=== PATIENT | male | born 1970 | race Hispanic/Latino ===

== ENCOUNTER 2019-10-12 14:41 | Observation (INO) | payer SELFPAY ==
[~2019-10-12] VITALS: Ht 165.1 cm; Wt 71.0 kg
[~2019-10-12 14:41] MED LIST: LANTUS100 MG/ML SC; METFORMIN500 MG PO; NO
[2019-10-12 18:20] LABS: HEMATOCRIT 38.1 % (39.0-50.0); IMMATURE GRANULOCYTES 0.3 % (0.0-5.0); MEAN CELL VOLUME 83.2 fL CALC (80.0-100.0); MEAN CORPUSCULAR HGB 27.9 pG CALC (26.0-32.0); MEAN CORPUSCULAR HGB CONC 33.6 g/L CALC (32.0-36.0); NEUT# 5.92 thou/uL (1.82-7.42); RED BLOOD COUNT 4.58 mill/uL (4.70-6.10); RED CELL DISTRI WIDTH 12.7 % (11.5-15.5)
[2019-10-12 18:21] LABS: URINE BILIRUBIN - DIPSTICK NEGATIVE (NEGATIVE); URINE BLOOD DIPSTICK NEGATIVE (NEGATIVE); URINE COLOR YELLOW; URINE GLUCOSE - DIPSTICK >=1000 mg/dL (NEGATIVE); URINE KETONE NEGATIVE (NEGATIVE); URINE LEUK ESTERASE NEGATIVE (NEGATIVE); URINE NITRITE - DIPSTICK NEGATIVE (Negative); URINE PH 5.5 (4.5-8.0); URINE PROTEIN - DIPSTICK NEGATIVE (NEG-TRACE); URINE SPECIFIC GRAVITY <=1.005; URINE UROBILINOGEN - DIPSTICK 0.2 E.U./dL (0.2)
[2019-10-12 18:22] LABS: HEMOGLOBIN 12.8 g/dl (14.0-18.0)
[2019-10-12 18:40] LABS: ALBUMIN 3.6 g/dL (3.2-5.0); ALKALINE PHOSPHATASE 98 u/l (38-126); ANION GAP 16 (6-22 (CALC)); BUN 14 mg/dL (9-20); BUN/CREATININE RATIO 17 (12-20 (CALC)); CARBON DIOXIDE 20 mmol/l (22-30); CHLORIDE 96 mmol/l (95-108); CREATININE 0.8 mg/dL (0.7-1.3); GFR > 60 ML/MIN (>=60 (CALC)); GFR FOR AFR.AMER. > 60 ML/MIN (>=60 (CALC)); POTASSIUM 4.1 mmol/l (3.5-5.1); SGOT/AST 24 u/l (17-59); SODIUM 129 mmol/l (137-146); TOTAL PROTEIN 6.5 g/dL (6.3-8.2)
[2019-10-12 18:57] LABS: BILIRUBIN, TOTAL 0.2 mg/dL (0.0-1.4)
[2019-10-12 23:42] VITALS: BP 118/78
[2019-10-13 03:59] VITALS: BP 111/65
[2019-10-13 08:45] VITALS: BP 112/64
[2019-10-13 14:03] LABS: HEMOGLOBIN 11.3 g/dl (14.0-18.0); MEAN CELL VOLUME 83.1 fL CALC (80.0-100.0); MEAN CORPUSCULAR HGB 28.5 pG CALC (26.0-32.0); MEAN CORPUSCULAR HGB CONC 34.2 g/L CALC (32.0-36.0); RED BLOOD COUNT 3.97 mill/uL (4.70-6.10); RED CELL DISTRI WIDTH 12.7 % (11.5-15.5)
[2019-10-13 14:31] LABS: ANION GAP 10 (6-22 (CALC)); BUN 11 mg/dL (9-20); BUN/CREATININE RATIO 18 (12-20 (CALC)); CARBON DIOXIDE 20 mmol/l (22-30); CHLORIDE 104 mmol/l (95-108); CREATININE 0.6 mg/dL (0.7-1.3); GFR > 60 ML/MIN (>=60 (CALC)); GFR FOR AFR.AMER. > 60 ML/MIN (>=60 (CALC)); MAGNESIUM 1.6 mg/dL (1.6-2.3); SODIUM 131 mmol/l (137-146)
[2019-10-13 15:18] VITALS: BP 109/50
[2019-10-13 19:18] VITALS: BP 119/71
[2019-10-14 04:03] VITALS: BP 96/52
[2019-10-14 05:35] LABS: ANION GAP 9 (6-22 (CALC)); BUN 9 mg/dL (9-20); BUN/CREATININE RATIO 15 (12-20 (CALC)); CARBON DIOXIDE 23 mmol/l (22-30); CHLORIDE 109 mmol/l (95-108); CREATININE 0.6 mg/dL (0.7-1.3); GFR > 60 ML/MIN (>=60 (CALC)); GFR FOR AFR.AMER. > 60 ML/MIN (>=60 (CALC)); MAGNESIUM 1.9 mg/dL (1.6-2.3); POTASSIUM 3.3 mmol/l (3.5-5.1); SODIUM 137 mmol/l (137-146)
[2019-10-14 08:10] VITALS: BP 121/62
[2019-10-14] MEDS ORDERED: GABAPENTIN300 M2 PO (12:08)
[2019-10-14] MEDS ORDERED: METFORMIN1000 MG PO (12:08)
[2019-10-14] MEDS ORDERED: NOVOLIN 70/30 SC (12:08)
== END 2019-10-14 15:00 | disposition home or self-care (01) | DRG 638 ==
LOC: ED 14:41 → ED-I 20:00 → ED 21:08 → ICU 21:09 → MS2 22:35
PROVIDERS: Nurse Practitioner Family; ADMIT Internal Medicine; ATTEND Internal Medicine
PROC: 3E0234Z Introduction of Serum, Toxoid and Vaccine into Muscle, Percutaneous Approach (ICD-10-PCS; principal; 2019-10-14)
DX: E11.65 Type 2 diabetes mellitus with hyperglycemia (principal); E87.1 Hypo-osmolality and hyponatremia; E11.42 Type 2 diabetes mellitus with diabetic polyneuropathy; I10 Essential (primary) hypertension; T38.3X6A Underdosing of insulin and oral hypoglycemic [antidiabetic] drugs, initial encounter; Z91.120 Patient's intentional underdosing of medication regimen due to financial hardship; Z79.4 Long term (current) use of insulin; Z23 Encounter for immunization
CPT/HCPCS: G0378; J1650

== ENCOUNTER 2019-11-25 | Emergency (ER) | payer SELFPAY ==
[~2019-11-25] MED LIST changes: +GABAPENTIN300 M2 PO; +METFORMIN1000 MG PO; +NOVOLIN 70/30 SC
[2019-11-25 14:17] LABS: IMMATURE GRANULOCYTES 0.2 % (0.0-5.0); MEAN CELL VOLUME 84.3 fL CALC (80.0-100.0); MEAN CORPUSCULAR HGB 27.7 pG CALC (26.0-32.0); MEAN CORPUSCULAR HGB CONC 32.8 g/L CALC (32.0-36.0); NEUT# 4.66 thou/uL (1.82-7.42); RED BLOOD COUNT 4.7 mill/uL (4.70-6.10); RED CELL DISTRI WIDTH 13.1 % (11.5-15.5)
[2019-11-25 14:21] LABS: HEMATOCRIT 39.6 % (39.0-50.0)
[2019-11-25 14:25] LABS: URINE BILIRUBIN - DIPSTICK NEGATIVE (NEGATIVE); URINE BLOOD DIPSTICK NEGATIVE (NEGATIVE); URINE COLOR YELLOW; URINE GLUCOSE - DIPSTICK >=1000 mg/dL (NEGATIVE); URINE KETONE NEGATIVE (NEGATIVE); URINE LEUK ESTERASE NEGATIVE (NEGATIVE); URINE NITRITE - DIPSTICK NEGATIVE (Negative); URINE PROTEIN - DIPSTICK NEGATIVE (NEG-TRACE); URINE SPECIFIC GRAVITY >=1.030; URINE UROBILINOGEN - DIPSTICK 0.2 E.U./dL (0.2)
[2019-11-25 14:29] LABS: BARBITURATES NEGATIVE (NEGATIVE); COCAINE NEGATIVE (NEGATIVE); METHADONE NEGATIVE (NEGATIVE); OXCYCODONE NEGATIVE (NEGATIVE); TETRAHYDROCANNABIONOL NEGATIVE (NEGATIVE); TRICYLIC ANTIDEPRESSANTS NEGATIVE (NEGATIVE)
[2019-11-25 14:33] LABS: ALBUMIN 4.1 g/dL (3.2-5.0); ALKALINE PHOSPHATASE 72 u/l (38-126); BUN 15 mg/dL (9-20); BUN/CREATININE RATIO 24 (12-20 (CALC)); CARBON DIOXIDE 24 mmol/l (22-30); CHLORIDE 102 mmol/l (95-108); CREATININE 0.6 mg/dL (0.7-1.3); GFR > 60 ML/MIN (>=60 (CALC)); GFR FOR AFR.AMER. > 60 ML/MIN (>=60 (CALC)); SGOT/AST 16 u/l (17-59); SODIUM 136 mmol/l (137-146); TOTAL PROTEIN 7.1 g/dL (6.3-8.2)
[2019-11-25 14:34] LABS: ANION GAP 15 (6-22 (CALC)); BILIRUBIN, TOTAL 0.4 mg/dL (0.0-1.4); POTASSIUM 4.5 mmol/l (3.5-5.1)
== END 2019-11-25 15:20 | disposition home or self-care (01) | DRG 93 ==
DX: R20.2 Paresthesia of skin (principal); E11.65 Type 2 diabetes mellitus with hyperglycemia; E11.40 Type 2 diabetes mellitus with diabetic neuropathy, unspecified; I10 Essential (primary) hypertension; Z79.84 Long term (current) use of oral hypoglycemic drugs

== ENCOUNTER 2020-04-19 12:24 | Emergency (ER) | payer SELFPAY ==
[~2020-04-19] VITALS: Ht 165.1 cm; Wt 72.0 kg
[2020-04-19] MEDS ORDERED: PENICILLN VK500 MG PO (12:43)
[2020-04-19 12:50] VITALS: BP 116/60
== END 2020-04-19 13:00 | disposition home or self-care (01) | DRG 159 ==
LOC: ED 12:24
DX: K04.7 Periapical abscess without sinus (principal); K02.9 Dental caries, unspecified; I10 Essential (primary) hypertension; E11.40 Type 2 diabetes mellitus with diabetic neuropathy, unspecified; Z79.84 Long term (current) use of oral hypoglycemic drugs

== ENCOUNTER 2020-07-27 18:46 | Emergency (ER) | payer SELFPAY ==
[~2020-07-27] VITALS: Ht 165.1 cm; Wt 69.0 kg
[~2020-07-27 18:46] MED LIST changes: +PENICILLN VK500 MG PO
[2020-07-27 19:52] LABS: HEMATOCRIT 33.6 % (39.0-50.0); HEMOGLOBIN 11.2 g/dl (14.0-18.0); IMMATURE GRANULOCYTES 0.2 % (0.0-5.0); MEAN CELL VOLUME 86.6 fL CALC (80.0-100.0); MEAN CORPUSCULAR HGB 28.9 pG CALC (26.0-32.0); MEAN CORPUSCULAR HGB CONC 33.3 g/dL CAL (32.0-36.0); NEUT# 3.03 thou/uL (1.82-7.42); RED BLOOD COUNT 3.88 mill/uL (4.70-6.10); RED CELL DISTRI WIDTH 14.3 % (11.5-15.5)
[2020-07-27 20:10] LABS: ALBUMIN 3.5 g/dL (3.2-5.0); ALKALINE PHOSPHATASE 80 u/l (38-126); ANION GAP 11 (6-22 (CALC)); BUN 15 mg/dL (9-20); BUN/CREATININE RATIO 16 (12-20 (CALC)); CARBON DIOXIDE 24 mmol/l (22-30); CHLORIDE 103 mmol/l (95-108); CPK 82 u/l (52-200); GFR > 60 ML/MIN (>=60 (CALC)); GFR FOR AFR.AMER. > 60 ML/MIN (>=60 (CALC)); MAGNESIUM 1.7 mg/dL (1.6-2.3); POTASSIUM 3.8 mmol/l (3.5-5.1); SGOT/AST 14 u/l (17-59); SODIUM 134 mmol/l (137-146)
[2020-07-27 20:11] LABS: BILIRUBIN, TOTAL 0.2 mg/dL (0.0-1.4)
[2020-07-27 20:21] LABS: MYOGLOBIN 33 ng/mL (0 - 121)
[2020-07-27 21:21] LABS: URINE BILIRUBIN - DIPSTICK NEGATIVE (NEGATIVE); URINE BLOOD DIPSTICK NEGATIVE (NEGATIVE); URINE COLOR YELLOW; URINE GLUCOSE - DIPSTICK >=1000 mg/dL (NEGATIVE); URINE KETONE NEGATIVE (NEGATIVE); URINE LEUK ESTERASE NEGATIVE (NEGATIVE); URINE NITRITE - DIPSTICK NEGATIVE (Negative); URINE PH 5.5 (4.5-8.0); URINE PROTEIN - DIPSTICK NEGATIVE (NEG-TRACE); URINE SPECIFIC GRAVITY 1.025; URINE UROBILINOGEN - DIPSTICK 0.2 E.U./dL (0.2)
[2020-07-27] MEDS ORDERED: NOVOLIN N100 UNIT/1 SC (21:35)
[2020-07-27 22:42] VITALS: BP 114/74
== END 2020-07-27 22:42 | disposition home or self-care (01) | DRG 639 ==
LOC: ED 18:46
PROVIDERS: Family Medicine
DX: E11.65 Type 2 diabetes mellitus with hyperglycemia (principal); I10 Essential (primary) hypertension; E11.40 Type 2 diabetes mellitus with diabetic neuropathy, unspecified; Z79.84 Long term (current) use of oral hypoglycemic drugs

== ENCOUNTER 2021-06-24 11:32 | Emergency (ER) | payer SELFPAY ==
[~2021-06-24] VITALS: Ht 165.1 cm; Wt 70.0 kg
[~2021-06-24 11:32] MED LIST changes: +NOVOLIN N100 UNIT/1 SC
[2021-06-24 12:19] LABS: HEMOGLOBIN 12.5 g/dl (14.0-18.0); IMMATURE GRANULOCYTES 0.2 % (0.0-5.0); MEAN CELL VOLUME 86.4 fL CALC (80.0-100.0); MEAN CORPUSCULAR HGB 28.4 pG CALC (26.0-32.0); MEAN CORPUSCULAR HGB CONC 32.9 g/dL CAL (32.0-36.0); NEUT# 14.25 thou/uL (1.82-7.42); RED BLOOD COUNT 4.4 mill/uL (4.70-6.10); RED CELL DISTRI WIDTH 13.9 % (11.5-15.5)
[2021-06-24 12:21] LABS: GFR > 60 ML/MIN (>=60 (CALC)); GFR FOR AFR.AMER. > 60 ML/MIN (>=60 (CALC))
[2021-06-24 12:35] LABS: ALBUMIN 4.2 g/dL (3.2-5.0); ALKALINE PHOSPHATASE 90 u/l (38-126); BUN 16 mg/dL (9-20); BUN/CREATININE RATIO 24 (12-20 (CALC)); CHLORIDE 97 mmol/l (95-108); CREATININE 0.7 mg/dL (0.7-1.3); GFR > 60 ML/MIN (>=60 (CALC)); GFR FOR AFR.AMER. > 60 ML/MIN (>=60 (CALC)); LIPASE 56 u/l (23-300); POTASSIUM 3.9 mmol/l (3.5-5.1); SGOT/AST 24 u/l (17-59); SODIUM 134 mmol/l (137-146)
[2021-06-24 12:47] LABS: ANION GAP 23 (6-22 (CALC)); BILIRUBIN, TOTAL 0.8 mg/dL (0.0-1.4); CARBON DIOXIDE 18 mmol/l (22-30); TOTAL PROTEIN 7.3 g/dL (6.3-8.2)
[2021-06-24] MEDS ORDERED: METRONIDAZOL500 MG PO (14:55)
[2021-06-24] MEDS ORDERED: ONDANSETRON4 MG PO (14:55)
[2021-06-24] MEDS ORDERED: CIPROFLOXACN500 MG PO (14:55)
[2021-06-24 15:51] VITALS: BP 147/70
== END 2021-06-24 15:58 | disposition home or self-care (01) | DRG 392 ==
LOC: ED 11:32
PROVIDERS: Family Medicine
DX: K20.90 Esophagitis, unspecified without bleeding (principal); I10 Essential (primary) hypertension; E11.40 Type 2 diabetes mellitus with diabetic neuropathy, unspecified; Z79.4 Long term (current) use of insulin; Z20.822 Contact with and (suspected) exposure to COVID-19
CPT/HCPCS: Q9967

== ENCOUNTER 2021-10-12 15:01 | Emergency (ER) | payer OTHER ==
[~2021-10-12] VITALS: Ht 165.1 cm; Wt 75.0 kg
[~2021-10-12 15:01] MED LIST changes: +CIPROFLOXACN500 MG PO; +METRONIDAZOL500 MG PO; +ONDANSETRON4 MG PO
[2021-10-12] MEDS ORDERED: LEVEMIR100 UNIT SC ×2 (17:11)
[2021-10-12] MEDS ORDERED: METFORMIN HCL1000 MG PO (17:12)
[2021-10-12] MEDS ORDERED: OMEPRAZOLE DR20 MG PO (17:13)
[2021-10-12 17:32] LABS: HEMATOCRIT 43.5 % (39.0-50.0); HEMOGLOBIN 14.4 g/dl (14.0-18.0); IMMATURE GRANULOCYTES 0.2 % (0.0-5.0); MEAN CELL VOLUME 86.8 fL CALC (80.0-100.0); MEAN CORPUSCULAR HGB 28.7 pG CALC (26.0-32.0); MEAN CORPUSCULAR HGB CONC 33.1 g/dL CAL (32.0-36.0); NEUT# 5.6 thou/uL (1.82-7.42); RED BLOOD COUNT 5.01 mill/uL (4.70-6.10); RED CELL DISTRI WIDTH 13.2 % (11.5-15.5)
[2021-10-12 17:48] LABS: ALKALINE PHOSPHATASE 108 u/l (38-126); ANION GAP 19 (6-22 (CALC)); BILIRUBIN, TOTAL 0.5 mg/dL (0.0-1.4); BUN 23 mg/dL (9-20); BUN/CREATININE RATIO 22 (12-20 (CALC)); CARBON DIOXIDE 20 mmol/l (22-30); CHLORIDE 97 mmol/l (95-108); CREATININE 1.1 mg/dL (0.7-1.3); GFR > 60 ML/MIN (>=60 (CALC)); GFR FOR AFR.AMER. > 60 ML/MIN (>=60 (CALC)); SGOT/AST 13 u/l (17-59); SODIUM 131 mmol/l (137-146)
[2021-10-12 18:00] LABS: POTASSIUM 5.1 mmol/l (3.5-5.1)
[2021-10-12 18:47] VITALS: BP 140/75
== END 2021-10-12 19:18 | disposition home or self-care (01) | DRG 639 ==
LOC: ED 15:01
PROVIDERS: Family Medicine
DX: E11.65 Type 2 diabetes mellitus with hyperglycemia (principal); I10 Essential (primary) hypertension; E11.40 Type 2 diabetes mellitus with diabetic neuropathy, unspecified; Z79.4 Long term (current) use of insulin; Z79.84 Long term (current) use of oral hypoglycemic drugs; Z20.822 Contact with and (suspected) exposure to COVID-19

== ENCOUNTER 2021-11-30 14:16 | Emergency (ER) | payer OTHER ==
[2021-11-30] VITALS (8 sets, daily range): BP systolic 119–148; BP diastolic 68–80
[~2021-11-30] VITALS: Ht 165.1 cm; Wt 77.0 kg
[~2021-11-30 14:16] MED LIST changes: +LEVEMIR100 UNIT SC; +METFORMIN HCL1000 MG PO; +OMEPRAZOLE DR20 MG PO
[2021-11-30 16:06] LABS: MYOGLOBIN 26 ng/mL (0 - 121)
[2021-11-30 17:06] LABS: HEMATOCRIT 40.9 % (39.0-50.0); HEMOGLOBIN 13.2 g/dl (14.0-18.0); IMMATURE GRANULOCYTES 0.4 % (0.0-5.0); MEAN CELL VOLUME 88.9 fL CALC (80.0-100.0); MEAN CORPUSCULAR HGB 28.7 pG CALC (26.0-32.0); MEAN CORPUSCULAR HGB CONC 32.3 g/dL CAL (32.0-36.0); NEUT# 4.12 thou/uL (1.82-7.42); RED BLOOD COUNT 4.6 mill/uL (4.70-6.10); RED CELL DISTRI WIDTH 12.7 % (11.5-15.5)
[2021-11-30 17:23] LABS: ANION GAP 16 (6-22 (CALC)); BUN 10 mg/dL (9-20); BUN/CREATININE RATIO 15 (12-20 (CALC)); CARBON DIOXIDE 20 mmol/l (22-30); CHLORIDE 101 mmol/l (95-108); CREATININE 0.7 mg/dL (0.7-1.3); GFR > 60 ML/MIN (>=60 (CALC)); GFR FOR AFR.AMER. > 60 ML/MIN (>=60 (CALC)); SODIUM 133 mmol/l (137-146)
[2021-11-30 17:25] LABS: POTASSIUM 3.8 mmol/l (3.5-5.1)
== END 2021-11-30 18:23 | disposition home or self-care (01) | DRG 639 ==
LOC: ED 14:16
PROVIDERS: Emergency Medicine
DX: E11.65 Type 2 diabetes mellitus with hyperglycemia (principal); E11.40 Type 2 diabetes mellitus with diabetic neuropathy, unspecified; I10 Essential (primary) hypertension; Z79.4 Long term (current) use of insulin; Z79.84 Long term (current) use of oral hypoglycemic drugs

== ENCOUNTER 2021-12-09 08:27 | Inpatient (IN) | payer OTHER ==
[2021-12-09] VITALS (10 sets, daily range): BP systolic 97–117; BP diastolic 58–72
[~2021-12-09] VITALS: Ht 165.1 cm; Wt 77.0 kg
--- NOTE | 2021-12-09 08:30 | NUR ---
TO ROOM VIA WHEELCHAIR
[2021-12-09 09:02] LABS: IMMATURE GRANULOCYTES 0.8 % (0.0-5.0); MEAN CELL VOLUME 90.8 fL CALC (80.0-100.0); MEAN CORPUSCULAR HGB 28.4 pG CALC (26.0-32.0); MEAN CORPUSCULAR HGB CONC 31.2 g/dL CAL (32.0-36.0); NEUT# 5.18 thou/uL (1.82-7.42); RED BLOOD COUNT 5.43 mill/uL (4.70-6.10); RED CELL DISTRI WIDTH 13.1 % (11.5-15.5)
[2021-12-09 09:16] LABS: ALBUMIN 4.7 g/dL (3.2-5.0); ALKALINE PHOSPHATASE 101 u/l (38-126); BILIRUBIN, TOTAL 0.5 mg/dL (0.0-1.4); BUN 21 mg/dL (9-20); CHLORIDE 103 mmol/l (95-108); HEMATOCRIT 49.3 % (39.0-50.0); HEMOGLOBIN 15.4 g/dl (14.0-18.0); SGOT/AST 17 u/l (17-59); TOTAL PROTEIN 8.2 g/dL (6.3-8.2)
[2021-12-09 09:17] LABS: ANION GAP 38 (6-22 (CALC)); BUN/CREATININE RATIO 12 (12-20 (CALC)); CREATININE 1.8 mg/dL (0.7-1.3); GFR 40 ML/MIN (>=60 (CALC)); GFR FOR AFR.AMER. 48 ML/MIN (>=60 (CALC)); POTASSIUM 5.5 mmol/l (3.5-5.1); SODIUM 140 mmol/l (137-146)
[2021-12-09 09:18] LABS: CARBON DIOXIDE < 5 mmol/l (22-30)
[2021-12-09 09:24] LABS: MYOGLOBIN 25 ng/mL (0 - 121)
--- NOTE | 2021-12-09 11:00 | NUR ---
Admission Note Report Given to: VEENA Transported by: Wheelchair X Stretcher Transported with: X Nurse Transporter X Patent IV X O2 X Soil Engineer Location: X ICU MS2
[2021-12-09 11:09] LABS: BUN 20 mg/dL (9-20); BUN/CREATININE RATIO 14 (12-20 (CALC)); CHLORIDE 114 mmol/l (95-108); CREATININE 1.4 mg/dL (0.7-1.3); GFR 53 ML/MIN (>=60 (CALC)); GFR FOR AFR.AMER. > 60 ML/MIN (>=60 (CALC)); SODIUM 143 mmol/l (137-146)
[2021-12-09 11:10] LABS: URINE BILIRUBIN - DIPSTICK NEGATIVE (NEGATIVE); URINE BLOOD DIPSTICK SMALL (NEGATIVE); URINE COLOR YELLOW; URINE GLUCOSE - DIPSTICK 500 mg/dL (NEGATIVE); URINE KETONE >=80 mg/dL (NEGATIVE); URINE LEUK ESTERASE NEGATIVE (NEGATIVE); URINE PH 5.5 (4.5-8.0); URINE PROTEIN - DIPSTICK 30 mg/dL (NEG-TRACE); URINE SPECIFIC GRAVITY >=1.030; URINE UROBILINOGEN - DIPSTICK 0.2 E.U./dL (0.2)
--- NOTE | 2021-12-09 11:10 | NUR ---
340 ACCUCHECK TITRATED IV TO 4UNITS INSULIN
[2021-12-09] MEDS ORDERED: ROSUVASTATIN CA20 MG PO (11:15)
[2021-12-09 11:16] LABS: CARBON DIOXIDE < 5 mmol/l (22-30)
[2021-12-09] MEDS ORDERED: LISINOPRIL2.5 MG PO (11:16)
[2021-12-09 11:26] LABS: URINE NITRITE - DIPSTICK NEGATIVE (Negative)
[2021-12-09 11:28] LABS: URINE MUCUS MODERATE hpf (NONE-FEW)
--- NOTE | 2021-12-09 12:30 | NUR ---
PT ARRIVES FROM ER VIA STRETCHER ACCOMPANIED BY DAVID BARRIENTOS. PT IS ALERT AND ORIENTED X 3. LUNGS CLEAR, RA. BM YESTERDAY, NO NAUSEA OR VOMITING. INSULIN DRIP TITRATED APPROPRIATELY, NOW AT 4 [facility].
[2021-12-09 14:06] LABS: BUN 19 mg/dL (9-20); BUN/CREATININE RATIO 16 (12-20 (CALC)); CHLORIDE 111 mmol/l (95-108); CREATININE 1.2 mg/dL (0.7-1.3); GFR > 60 ML/MIN (>=60 (CALC)); GFR FOR AFR.AMER. > 60 ML/MIN (>=60 (CALC)); SODIUM 140 mmol/l (137-146)
[2021-12-09 14:16] LABS: ANION GAP 29 (6-22 (CALC)); CARBON DIOXIDE < 5 mmol/l (22-30); POTASSIUM 5.3 mmol/l (3.5-5.1)
--- NOTE | 2021-12-09 15:29 | NUR ---
BS 232, SO IVF SWITCHED TO D5.45 AT 150. PT RESTS IN THE BED IN NO DISTRESS.
[2021-12-09 18:38] LABS: ANION GAP 17 (6-22 (CALC)); BUN 16 mg/dL (9-20); BUN/CREATININE RATIO 19 (12-20 (CALC)); CHLORIDE 111 mmol/l (95-108); CREATININE 0.9 mg/dL (0.7-1.3); GFR > 60 ML/MIN (>=60 (CALC)); GFR FOR AFR.AMER. > 60 ML/MIN (>=60 (CALC)); POTASSIUM 4.7 mmol/l (3.5-5.1); SODIUM 134 mmol/l (137-146)
[2021-12-09 18:53] LABS: CARBON DIOXIDE 11 mmol/l (22-30)
--- NOTE | 2021-12-09 19:00 | NUR ---
REPORT RECIEVED FROM OUT-GOING SHIFT VEENA BARRIENTOS. PATIENT ALERT AND ORIENTED X 3 INSULIN DRIP AT 3 UNITS/HR.
--- NOTE | 2021-12-09 20:15 | NUR ---
DR MÁRQUEZ UPDATED ON CONDITION ACCUCHECK 175 MG/DL INSULLIN DRIP TITRATED TO 2 UNIT/HR. NO OTHER CHANGES NOTED CONDITION STABLE.
--- NOTE | 2021-12-09 21:10 | NUR ---
ACCUCHECK 194 MG/DL NO CHANGES IN INSULIN DRIP. NURISHMENT PROVIDED CLEAR LIQUID DIABETIC DIET TOLERATED WELL
[2021-12-09 21:14] LABS: ANION GAP 15 (6-22 (CALC)); BUN 14 mg/dL (9-20); BUN/CREATININE RATIO 18 (12-20 (CALC)); CARBON DIOXIDE 12 mmol/l (22-30); CHLORIDE 111 mmol/l (95-108); CREATININE 0.8 mg/dL (0.7-1.3); GFR > 60 ML/MIN (>=60 (CALC)); GFR FOR AFR.AMER. > 60 ML/MIN (>=60 (CALC)); POTASSIUM 4.5 mmol/l (3.5-5.1); SODIUM 133 mmol/l (137-146)
--- NOTE | 2021-12-09 22:00 | NUR ---
WATCHING TV NO ACUTE DISTRESS NOTED ACCUCHECK 214 MG/DL INSUIN DRIP AT 3 UNITS/HR
--- NOTE | 2021-12-09 23:00 | NUR ---
PATIENT RESTING QUIETLY WITH EYES CLOSE NO DISTRESS NOTED.
[2021-12-10] VITALS (18 sets, daily range): BP systolic 79–135; BP diastolic 46–79
--- NOTE | 2021-12-10 00:06 | NUR ---
RESTING QUIETLY WITH EYES CLOSED ACCUCHECK 186 MG/DL SKIN WARM AND DRY. CONDITION STABLE.
--- NOTE | 2021-12-10 02:00 | NUR ---
RESTING QUIETLY WITH EYES CLOSED RESULTS OBTAIN NON-CRITICAL TRENDING IMPROVEMENTS NOTED GLUCOSE 193 MG/DL WILL CONTIUE TO MONITOR
[2021-12-10 02:20] LABS: ANION GAP 10 (6-22 (CALC)); BUN 11 mg/dL (9-20); BUN/CREATININE RATIO 16 (12-20 (CALC)); CHLORIDE 110 mmol/l (95-108); CREATININE 0.7 mg/dL (0.7-1.3); GFR > 60 ML/MIN (>=60 (CALC)); GFR FOR AFR.AMER. > 60 ML/MIN (>=60 (CALC)); POTASSIUM 3.7 mmol/l (3.5-5.1); SODIUM 132 mmol/l (137-146)
[2021-12-10 02:23] LABS: CARBON DIOXIDE 16 mmol/l (22-30)
[2021-12-10 06:20] LABS: MEAN CORPUSCULAR HGB 28.6 pG CALC (26.0-32.0); RED BLOOD COUNT 3.99 mill/uL (4.70-6.10); RED CELL DISTRI WIDTH 13.2 % (11.5-15.5)
[2021-12-10 06:21] LABS: ANION GAP 11 (6-22 (CALC)); BUN 9 mg/dL (9-20); BUN/CREATININE RATIO 13 (12-20 (CALC)); CARBON DIOXIDE 15 mmol/l (22-30); CHLORIDE 110 mmol/l (95-108); CREATININE 0.7 mg/dL (0.7-1.3); GFR > 60 ML/MIN (>=60 (CALC)); GFR FOR AFR.AMER. > 60 ML/MIN (>=60 (CALC)); POTASSIUM 3.6 mmol/l (3.5-5.1); SODIUM 133 mmol/l (137-146)
[2021-12-10 06:22] LABS: CHOLESTEROL HDL RATIO 4.1 (<4.4 (CALC)); HEMATOCRIT 33.5 % (39.0-50.0); HEMOGLOBIN 11.4 g/dl (14.0-18.0); MAGNESIUM 1.5 mg/dL (1.6-2.3)
--- NOTE | 2021-12-10 06:25 | NUR ---
RESTING QUIETLY IN BED NO COMPLAINTS ACUCHECK 192 MG/DL INSULIN DRIP REMAIN AT 2 UNITS/HR
--- NOTE | 2021-12-10 07:30 | NUR ---
pt awake in bed; no apparent distress noted; pt offers no complaints; assessment completed at this time; pt alert and oriented; denies pain; no n/v noted; resp even and unlabored; lungs clear; skin color wnl; ra; hr reg; strong pulses; no edema noted; sr on monitor; abd soft with bs present; no bm noted per automobile and property underwriter; pt admits to voiding without complication; no urine to inspect at this time; #20 patent to rac with ivf/ insulin gtt infusing as per protocol; #20 flushed and patent to lac; mag infusion started; plan of care/ meds explained; call light withiin reach; will continue to monitor
--- NOTE | 2021-12-10 08:00 | NUR ---
awake in bed eating breakfast; sr on monitor; iv intact; insulin gtt continued; call light within reach; will continue to monitor
--- NOTE | 2021-12-10 10:15 | NUR ---
pt resting in bed with eyes closed; easily aroused; offers no complaints; iv intact and patent; insulin gtt dc'd as per MD orders; sr on monitor; call light within reach; will continue to monitor
--- NOTE | 2021-12-10 12:00 | NUR ---
awake in bed; offers no complaints; no apparent distress noted; iv intact and patent; sr on monitor; call light within reach; will continue to monitor
--- NOTE | 2021-12-10 12:00 | NUR ---
awake in bed; no apparent distress noted; sr on monitor; call light within reach; will continue to monitor
--- NOTE | 2021-12-10 14:00 | NUR ---
awake in bed; offers no complaints; no apparent distress noted; iv intact and patent; sr on monitor; call light within reach; will continue to monitor
--- NOTE | 2021-12-10 16:00 | NUR ---
pt awake in bed; offers no complaints; iv intact and patent; no redness or edema noted at site; sr on monitor; call light within reach; will continue to monitor
--- NOTE | 2021-12-10 17:30 | NUR ---
glucose 171; labs obtained x1 attempt; will continue to monitor
[2021-12-10 18:04] LABS: ANION GAP 10 (6-22 (CALC)); BUN 4 mg/dL (9-20); BUN/CREATININE RATIO 7 (12-20 (CALC)); CARBON DIOXIDE 16 mmol/l (22-30); CHLORIDE 111 mmol/l (95-108); CREATININE 0.7 mg/dL (0.7-1.3); GFR > 60 ML/MIN (>=60 (CALC)); GFR FOR AFR.AMER. > 60 ML/MIN (>=60 (CALC)); POTASSIUM 3.9 mmol/l (3.5-5.1); SODIUM 133 mmol/l (137-146)
--- NOTE | 2021-12-10 18:09 | NUR ---
pt awake in bed; offers no complaints; eating dinner; iv intact and patent; sr on monitor; call light within reach
--- NOTE | 2021-12-10 19:30 | NUR ---
RESTING IN BED WITHOUT COMPLAINTS. WATCHING TV.
--- NOTE | 2021-12-10 21:00 | NUR ---
RESTING WITHOUT COMPLAINTS. VSS. RESP NON-LABORED. LUNGS CLEAR. NS INFUSING INTO RAC AT 125 ML/HR AND SALINE LOCK IN LAC. SHIFT ASSESSMENT COMPLETED. MONITOR SHOWS SR. DISCUSSED PLAN OF CARE. INFORMED WILL TRANSFER TO /S [facility]. DENIES NEEDS AT THIS TIME. CALL MILNER IN REACH.
--- NOTE | 2021-12-10 21:45 | NUR ---
REPORT GIVEN TO ALIA.
--- NOTE | 2021-12-10 23:00 | NUR ---
PATIENT TRANSFERRED TO M/S ROOM 268 VIA WC.
--- NOTE | 2021-12-10 23:05 | NUR ---
PT ARRIVED TO MS2 VIA WHEELCHAIR ACCOMPANIED BY RESIDENTIAL COUNSELOR, NO SIGNS OF DISTRESS NOTED, RESP EVEN AND UNLABORED. ORIENTED PT TO ROOM AND CALL LIGHT, PT VOICES NO NEEDS OR COMPLAINTS AT THIS TIME. IVF INFUSING, DISCUSSED POC, VERBALIZED UNDERSTANDING. CALL LIGHT IN REACH,CONTINUE TO MONITOR.
[2021-12-11 04:00] VITALS: BP 129/67
--- NOTE | 2021-12-11 05:23 | NUR ---
PT RESTING IN BED, NO SIGNS OF DISTRESS NOTED, RESP EVEN AND UNLABORED. VOICES NO NEEDS OR COMPLAINTS AT THIS TIME, CALL LIGHT IN REACH,CONTINUE TO MONITOR.
[2021-12-11 06:14] LABS: ALKALINE PHOSPHATASE 56 u/l (38-126); BILIRUBIN, TOTAL 0.3 mg/dL (0.0-1.4); BUN 6 mg/dL (9-20); BUN/CREATININE RATIO 9 (12-20 (CALC)); CHLORIDE 113 mmol/l (95-108); CREATININE 0.7 mg/dL (0.7-1.3); GFR > 60 ML/MIN (>=60 (CALC)); GFR FOR AFR.AMER. > 60 ML/MIN (>=60 (CALC)); POTASSIUM 3.7 mmol/l (3.5-5.1); SGOT/AST 15 u/l (17-59); SODIUM 139 mmol/l (137-146)
[2021-12-11 06:18] LABS: ALBUMIN 2.8 g/dL (3.2-5.0); ANION GAP 10 (6-22 (CALC)); CARBON DIOXIDE 20 mmol/l (22-30); TOTAL PROTEIN 5.4 g/dL (6.3-8.2)
--- NOTE | 2021-12-11 07:00 | NUR ---
SHIFT CHANGE REPORT, PT AWAKE ALERT AND ORIENTED, NO C/O DISCOMFORT BUT WANTS TO KNOW WHEN HE WILL BE GOING HOME, HE NEEDS SHOWER AT THIS TIME BUT ADVISED TO WAIT UNTIL MD DOES ROUNDING SO HE IS AVAILABLE WHEN GOES TO ROOM. IVF INFUSING, CALL MILNER IN REACH AND BED LOCKED IN LOWEST POSITION.
[2021-12-11 09:27] VITALS: BP 100/60
--- NOTE | 2021-12-11 17:01 | NUR ---
Discharge instructions given. Patient verbalizes understanding of same. Discharged in good condition via Wheelchair to Home with family. All belongings sent with pt.
== END 2021-12-11 15:16 | disposition home or self-care (01) | DRG 637 ==
LOC: ED 08:27 → ED-I 09:20 → ED 10:31 → ICU 10:33 → MS2 12-10 23:05
PROVIDERS: Emergency Medicine; ADMIT Internal Medicine; ATTEND Internal Medicine
DX: E11.10 Type 2 diabetes mellitus with ketoacidosis without coma (principal); U07.1 COVID-19; R11.2 Nausea with vomiting, unspecified; R19.7 Diarrhea, unspecified; R06.00 Dyspnea, unspecified; I10 Essential (primary) hypertension; E11.42 Type 2 diabetes mellitus with diabetic polyneuropathy; Z87.891 Personal history of nicotine dependence; Z79.4 Long term (current) use of insulin; Z79.84 Long term (current) use of oral hypoglycemic drugs
CPT/HCPCS: J3475

== ENCOUNTER 2022-05-07 19:21 | Observation (INO) | payer OTHER ==
[~2022-05-07] VITALS: Ht 165.1 cm; Wt 77.0 kg
[~2022-05-07 19:21] MED LIST changes: +LISINOPRIL2.5 MG PO; +ROSUVASTATIN CA20 MG PO
--- NOTE | 2022-05-07 19:23 | NUR ---
PT TO ROOM VIA WHEELCHAIR. PT REPORTS BURNING PAIN IN CHEST AFTER VOMITING YESTERDAY AND TODAY. NO DISTRESS NOTED.
--- NOTE | 2022-05-07 19:50 | NUR ---
50ML BILIOUS EMESIS
[2022-05-07 20:07] LABS: IMMATURE GRANULOCYTES 0.3 % (0.0-5.0); MEAN CELL VOLUME 86.8 fL CALC (80.0-100.0); MEAN CORPUSCULAR HGB 28.6 pG CALC (26.0-32.0); NEUT# 11.62 thou/uL (1.82-7.42); RED BLOOD COUNT 5.45 mill/uL (4.70-6.10); RED CELL DISTRI WIDTH 13.2 % (11.5-15.5)
[2022-05-07 20:13] LABS: AMYLASE 70 u/l (30-110); CARBON DIOXIDE 17 mmol/l (22-30); CREATININE 1.4 mg/dL (0.7-1.3); GFR FOR AFR.AMER. > 60 ML/MIN (>=60 (CALC)); GFR OTHER RACES 53 ML/MIN (>=60 (CALC)); HEMATOCRIT 47.3 % (39.0-50.0); HEMOGLOBIN 15.6 g/dl (14.0-18.0); LIPASE 40 u/l (23-300); SGOT/AST 20 u/l (17-59); SODIUM 138 mmol/l (137-146)
[2022-05-07 20:15] LABS: ALKALINE PHOSPHATASE 135 u/l (38-126); ANION GAP 28 (6-22 (CALC)); BUN 34 mg/dL (9-20); BUN/CREATININE RATIO 24 (12-20 (CALC)); CHLORIDE 98 mmol/l (95-108); POTASSIUM 4.5 mmol/l (3.5-5.1); TOTAL PROTEIN 8.6 g/dL (6.3-8.2)
[2022-05-07 20:24] LABS: MYOGLOBIN 75 ng/mL (0 - 121)
[2022-05-07 22:04] LABS: URINE BILIRUBIN - DIPSTICK NEGATIVE (NEGATIVE); URINE BLOOD DIPSTICK NEGATIVE (NEGATIVE); URINE COLOR YELLOW; URINE GLUCOSE - DIPSTICK >=1000 mg/dL (NEGATIVE); URINE KETONE 40 mg/dL (NEGATIVE); URINE LEUK ESTERASE NEGATIVE (NEGATIVE); URINE PH 5.5 (4.5-8.0); URINE PROTEIN - DIPSTICK NEGATIVE (NEG-TRACE); URINE SPECIFIC GRAVITY 1.025; URINE UROBILINOGEN - DIPSTICK 0.2 E.U./dL (0.2)
[2022-05-07 22:08] LABS: URINE NITRITE - DIPSTICK NEGATIVE (Negative)
--- NOTE | 2022-05-07 22:32 | NUR ---
RPT GIVEN TO BALA BARRIENTOS, PT CARE RELINQUISHED AT THIS TIME.
[2022-05-08] VITALS (35 sets, daily range): BP systolic 91–140; BP diastolic 44–76
--- NOTE | 2022-05-08 | NUR ---
PT RESTING COMFORTABLY ON STRETCHER. NO COMPLAINTS. AWAITING CT SCAN RESULTS. URINE OUTPUT 700ML -DEWAYNE URINE
[2022-05-08 01:17] LABS: ANION GAP 21 (6-22 (CALC)); BUN 38 mg/dL (9-20); BUN/CREATININE RATIO 32 (12-20 (CALC)); CARBON DIOXIDE 16 mmol/l (22-30); CHLORIDE 107 mmol/l (95-108); CREATININE 1.2 mg/dL (0.7-1.3); GFR FOR AFR.AMER. > 60 ML/MIN (>=60 (CALC)); GFR OTHER RACES > 60 ML/MIN (>=60 (CALC)); POTASSIUM 4.1 mmol/l (3.5-5.1); SODIUM 141 mmol/l (137-146)
--- NOTE | 2022-05-08 02:00 | NUR ---
PT AGREES WITH PLAN FOR ADMISSION. VSS. NO DISTRESS.
--- NOTE | 2022-05-08 02:40 | NUR ---
Admission Note Report Given to: ILIANA CRUZ Transported by: Wheelchair X Stretcher Transported with: X Nurse Transporter X Patent IV O2 X Optician Apprentice Location: ICU MS2 PT TRANSPORTED TO ICU 3 - TELE ADMIT BEING HOUSED IN ICU
--- NOTE | 2022-05-08 02:45 | NUR ---
PT ARRIVES VIA STRETCHER, ACCOMPANIED BY Kristian PANIAGUA RN. ON MACHINE TRACER. PATENT IV INFUSING FLAGYL. PT AMBULATORY TO BED. ADMITTED TO ICU 2.
--- NOTE | 2022-05-08 03:18 | NUR ---
PT GIVEN GABAPENTIN, VOICES NO NEEDS OR COMPLAINTS AT THIS TIME. CALL LIGHT IN REACH,CONTINUE TO MONITOR.
--- NOTE | 2022-05-08 05:58 | NUR ---
PT RESTING IN BED WITH EYES CLOSED, NO SIGNS OF DISTRESS NOTED, RESP EVEN AND UNLABORED. CALL LIGHT IN REACH,CONTINUE TO MONITOR.
--- NOTE | 2022-05-08 07:29 | NUR ---
pt sitting in bed. a&o x3. no distress noted.pt reports feeling well this morning. denies any n&v. clear breath sounds upon auscultation. hypoactive bowel sounds x4 quadrants. #20g lac healthy and patent with ivf infusing per mar orders. accu check 318; pt covered with insulin per orders. assessment completed. discussed poc. call light within reach.
[2022-05-08] MEDS ORDERED: ACETAMIN500 M2 PO (08:50)
[2022-05-08] MEDS ORDERED: TAMSULOSIN0.4 MG PO (09:45)
[2022-05-08] MEDS ORDERED: KEFLEX500 MG PO (09:46)
--- NOTE | 2022-05-08 10:00 | NUR ---
PT SITTING IN BED. NO DISTRESS NOTED. NO NEEDS AT THIS TIME. CALL LIGHT WITHIN REACH.
--- NOTE | 2022-05-08 12:00 | NUR ---
LAB AT BEDSIDE FOR VENIPUNCTURE. NO DISTRESS NOTED. NO NEEDS REPORTED AT THIS TIME. CALL LIGHT WITHIN REACH.
--- NOTE | 2022-05-08 13:10 | NUR ---
RECIEVED REPORT FROM ILIANA ARANGO
--- NOTE | 2022-05-08 13:11 | NUR ---
REPORT GIVEN TO Chauncey JEREZ LPN
--- NOTE | 2022-05-08 13:22 | NUR ---
PT ARRIVED TO [facility] VIA WHEELCHAIR ACCOMPAINED BY ICU STAFF. PT REQUESTED TO SHOWER. PT SET UP FOR SHOWER. PT INFORMED TO CALL WHEN BACK IN BED. VERBLAIZED UNDERSTANDING.
--- NOTE | 2022-05-08 13:28 | NUR ---
PT TRANSFERRED TO ROOM 279 IN STABLE CONDITION. ASSISTED TO SHOWER. ORIENTED PT TO ROOM.
--- NOTE | 2022-05-08 16:52 | NUR ---
PT RESTING IN SEMI FOWLERS POSITION WITH EYES CLOSED. RESPIRATIONS EVEN AND UNLABORED ON ROOM AIR. #20G LAC INFUSING WITH IVF. NO SIGNS OF ANY DISCOMFORTS AT THIS TIME. ALL SAFTEY PRECAUTIONS ARE IN PLACE WITH CALL LIGHT IN REACH
--- NOTE | 2022-05-08 19:39 | NUR ---
PT RESTING IN BED WATCHING TV, NO SIGNS OF DISTRESS NOTED, RESP EVEN AND UNLABORED. PT C/O SORE THROAT, PROVIDED PT WITH THROAT LOZENGE. PT ALERT AND ORIENTED X3, NO EDEMA. DENIES ANY N/V OR PAIN AT THIS TIME. PT STATES LAST BM 05/07. SKIN INTACT. DISCUSSED POC, AND NEW MEDICATIONS, VERBALIZED UNDERSTANDING. ASSESSMENT COMPLETED, CALL LIGHT IN REACH,CONTINUE TO MONITOR.
--- NOTE | 2022-05-09 | NUR ---
PT RESTING IN BED WATCHING TV, NO SIGNS OF DISTRESS NOTED, RESP EVEN AND UNLABORED. PT VOICES NO NEEDS OR COMPLAINTS AT THIS TIME. CALL LIGHT IN REACH,CONTINUE TO MONITOR.
[2022-05-09 04:00] VITALS: BP 121/68
--- NOTE | 2022-05-09 04:00 | NUR ---
PT RESTING IN BED, NO SIGNS OF DISTRESS NOTED, SHEET METAL FABRICATOR OBTAINED VITALS, VOICES NO NEEDS OR COMPLAINTS AT THIS TIME, CALL LIGHT IN REACH,CONTINUE TO MONITOR.
[2022-05-09 04:12] VITALS: BP 121/68
[2022-05-09 05:57] LABS: IMMATURE GRANULOCYTES 0.3 % (0.0-5.0); MEAN CORPUSCULAR HGB 29.1 pG CALC (26.0-32.0); MEAN CORPUSCULAR HGB CONC 33.8 g/dL CAL (32.0-36.0); NEUT# 4.13 thou/uL (1.82-7.42); RED BLOOD COUNT 3.78 mill/uL (4.70-6.10); RED CELL DISTRI WIDTH 13.5 % (11.5-15.5)
[2022-05-09 06:02] LABS: ANION GAP 6 (6-22 (CALC)); CHLORIDE 110 mmol/l (95-108); CREATININE 0.7 mg/dL (0.7-1.3); GFR FOR AFR.AMER. > 60 ML/MIN (>=60 (CALC)); GFR OTHER RACES > 60 ML/MIN (>=60 (CALC)); POTASSIUM 4.1 mmol/l (3.5-5.1); SODIUM 135 mmol/l (137-146)
[2022-05-09 06:04] LABS: BUN 17 mg/dL (9-20); BUN/CREATININE RATIO 24 (12-20 (CALC)); CARBON DIOXIDE 23 mmol/l (22-30)
[2022-05-09 06:05] LABS: HEMATOCRIT 32.5 % (39.0-50.0)
[2022-05-09 07:00] VITALS: BP 120/67
--- NOTE | 2022-05-09 07:00 | NUR ---
REPORT RECIEVED FROM BALL ROLLING MACHINE OPERATOR NURSE PT WATCHING TV IN BED. BREATHING EVEN AND UNLABORED. NO DISTRESS NOTED. FALL/SAFTEY PRECAUTION IN PLACE. CALL LIGHT WITHIN REACH
--- NOTE | 2022-05-09 08:26 | NUR ---
PT WATCHING TV UPON ENTERING ROOM. STATES NO PAIN BLOOD GLUCOSE 195 COVERED PER SLIDING SCALE. TELE MONITOR IN PLACE. CONTINOUS MONITORING PER ED. ASSESSMENT ALLOWED. PT A&O X3. BOWEL SOUNDS ACTIVE X4. ABD SOFT. IV: 20G LAC FLUSHED INFUSING IVF PER EMAR FALL/SAFTEY PRECAUTION IN PLACE. CALL LIGHT WITHIN REACH
[2022-05-09] MEDS ORDERED: METRONIDAZOLE500 MG PO (09:39)
[2022-05-09] MEDS ORDERED: CIPROFLOXACN500 MG PO (09:39)
[2022-05-09 10:46] VITALS: BP 104/52
--- NOTE | 2022-05-09 12:03 | NUR ---
BLOOD GLUCOSE: 273 COVERED PER SLIDING SCALE. LUNCH PROVIDED AT BEDSIDE. STATES NO PAIN. FALL/SAFTEY PRECAUTION IN PLACE. CALL LIGHT WITHIN REACH.
--- NOTE | 2022-05-09 12:25 | NUR ---
Discharge instructions given. Patient verbalizes understanding of same. Discharged in stable condition via Wheelchair to Home with staff. All belongings sent with pt.
== END 2022-05-09 12:25 | disposition home or self-care (01) | DRG 392 ==
LOC: ED 19:21 → ED-I 05-08 01:30 → ED 05-08 01:35 → ICU 05-08 01:45 → MS2 05-08 01:45
PROVIDERS: Emergency Medicine; ADMIT Internal Medicine; ATTEND Internal Medicine
DX: K52.9 Noninfective gastroenteritis and colitis, unspecified (principal); E11.65 Type 2 diabetes mellitus with hyperglycemia; N40.1 Benign prostatic hyperplasia with lower urinary tract symptoms; R39.15 Urgency of urination; R35.0 Frequency of micturition; I10 Essential (primary) hypertension; E11.40 Type 2 diabetes mellitus with diabetic neuropathy, unspecified; Z87.11 Personal history of peptic ulcer disease; Z79.4 Long term (current) use of insulin; Z79.84 Long term (current) use of oral hypoglycemic drugs; Z20.822 Contact with and (suspected) exposure to COVID-19; Z87.891 Personal history of nicotine dependence
CPT/HCPCS: G0378; Q9967; S0164

== ENCOUNTER 2022-07-09 15:36 | Observation (INO) | payer OTHER ==
[2022-07-09] VITALS (9 sets, daily range): BP systolic 106–145; BP diastolic 57–81
[~2022-07-09] VITALS: Ht 165.1 cm; Wt 75.0 kg
[~2022-07-09 15:36] MED LIST changes: +ACETAMIN500 M2 PO; +KEFLEX500 MG PO; +METRONIDAZOLE500 MG PO; +TAMSULOSIN0.4 MG PO
[2022-07-09 17:46] LABS: IMMATURE GRANULOCYTES 0.3 % (0.0-5.0); MEAN CELL VOLUME 84.6 fL CALC (80.0-100.0); MEAN CORPUSCULAR HGB 28.7 pG CALC (26.0-32.0); MEAN CORPUSCULAR HGB CONC 33.9 g/dL CAL (32.0-36.0); NEUT# 12.03 thou/uL (1.82-7.42); RED BLOOD COUNT 4.95 mill/uL (4.70-6.10)
[2022-07-09 17:50] LABS: HEMATOCRIT 41.9 % (39.0-50.0); HEMOGLOBIN 14.2 g/dl (14.0-18.0)
[2022-07-09 17:56] LABS: ALBUMIN 4.9 g/dL (3.2-5.0); ALKALINE PHOSPHATASE 101 u/l (38-126); AMYLASE 73 u/l (30-110); BILIRUBIN, TOTAL 0.9 mg/dL (0.0-1.4); BUN 21 mg/dL (9-20); BUN/CREATININE RATIO 24 (12-20 (CALC)); CHLORIDE 99 mmol/l (95-108); CREATININE 0.9 mg/dL (0.7-1.3); GFR FOR AFR.AMER. > 60 ML/MIN (>=60 (CALC)); GFR OTHER RACES > 60 ML/MIN (>=60 (CALC)); LIPASE 38 u/l (23-300); POTASSIUM 4.5 mmol/l (3.5-5.1); SGOT/AST 31 u/l (17-59); SODIUM 136 mmol/l (137-146)
[2022-07-09 18:02] LABS: ANION GAP 30 (6-22 (CALC)); CARBON DIOXIDE 12 mmol/l (22-30)
[2022-07-09 18:08] LABS: MYOGLOBIN 68 ng/mL (0 - 121)
[2022-07-09 19:13] LABS: URINE BILIRUBIN - DIPSTICK NEGATIVE (NEGATIVE); URINE BLOOD DIPSTICK NEGATIVE (NEGATIVE); URINE COLOR YELLOW; URINE GLUCOSE - DIPSTICK >=1000 mg/dL (NEGATIVE); URINE KETONE >=80 mg/dL (NEGATIVE); URINE LEUK ESTERASE NEGATIVE (NEGATIVE); URINE PROTEIN - DIPSTICK NEGATIVE (NEG-TRACE); URINE SPECIFIC GRAVITY >=1.030; URINE UROBILINOGEN - DIPSTICK 0.2 E.U./dL (0.2)
[2022-07-09 19:21] LABS: URINE NITRITE - DIPSTICK NEGATIVE (Negative)
[2022-07-10] VITALS (34 sets, daily range): BP systolic 85–140; BP diastolic 51–74
[2022-07-10] MEDS ORDERED: PROTONIX20 M1 PO (07:43)
[2022-07-10] MEDS ORDERED: GABAPENTIN300 M2 PO (07:43)
[2022-07-10] MEDS ORDERED: SILDENAFIL100 MG PO (07:44)
[2022-07-10] MEDS ORDERED: ACTOS15 MG PO (07:45)
[2022-07-10 13:13] LABS: HEMATOCRIT 37.9 % (39.0-50.0); HEMOGLOBIN 12.5 g/dl (14.0-18.0); IMMATURE GRANULOCYTES 0.2 % (0.0-5.0); MEAN CELL VOLUME 87.3 fL CALC (80.0-100.0); MEAN CORPUSCULAR HGB 28.8 pG CALC (26.0-32.0); NEUT# 8.28 thou/uL (1.82-7.42); RED BLOOD COUNT 4.34 mill/uL (4.70-6.10); RED CELL DISTRI WIDTH 14.4 % (11.5-15.5)
[2022-07-10 13:25] LABS: BUN 25 mg/dL (9-20); BUN/CREATININE RATIO 23 (12-20 (CALC)); CHLORIDE 109 mmol/l (95-108); CREATININE 1.1 mg/dL (0.7-1.3); GFR FOR AFR.AMER. > 60 ML/MIN (>=60 (CALC)); GFR OTHER RACES > 60 ML/MIN (>=60 (CALC)); POTASSIUM 4.3 mmol/l (3.5-5.1); SODIUM 141 mmol/l (137-146)
[2022-07-10 13:44] LABS: ANION GAP 28 (6-22 (CALC)); CARBON DIOXIDE 8 mmol/l (22-30)
[2022-07-10 15:54] LABS: BUN 24 mg/dL (9-20); BUN/CREATININE RATIO 26 (12-20 (CALC)); CHLORIDE 110 mmol/l (95-108); CREATININE 0.9 mg/dL (0.7-1.3); GFR FOR AFR.AMER. > 60 ML/MIN (>=60 (CALC)); GFR OTHER RACES > 60 ML/MIN (>=60 (CALC)); POTASSIUM 4.1 mmol/l (3.5-5.1); SODIUM 143 mmol/l (137-146)
[2022-07-10 15:56] LABS: ANION GAP 23 (6-22 (CALC)); CARBON DIOXIDE 14 mmol/l (22-30)
[2022-07-10 16:52] LABS: ANION GAP 19 (6-22 (CALC)); BUN 23 mg/dL (9-20); BUN/CREATININE RATIO 26 (12-20 (CALC)); CARBON DIOXIDE 14 mmol/l (22-30); CHLORIDE 113 mmol/l (95-108); CREATININE 0.9 mg/dL (0.7-1.3); GFR FOR AFR.AMER. > 60 ML/MIN (>=60 (CALC)); GFR OTHER RACES > 60 ML/MIN (>=60 (CALC)); POTASSIUM 4.2 mmol/l (3.5-5.1); SODIUM 143 mmol/l (137-146)
[2022-07-10 18:38] LABS: ANION GAP 14 (6-22 (CALC)); BUN 20 mg/dL (9-20); BUN/CREATININE RATIO 27 (12-20 (CALC)); CHLORIDE 115 mmol/l (95-108); CREATININE 0.8 mg/dL (0.7-1.3); GFR FOR AFR.AMER. > 60 ML/MIN (>=60 (CALC)); GFR OTHER RACES > 60 ML/MIN (>=60 (CALC)); POTASSIUM 4.1 mmol/l (3.5-5.1); SODIUM 142 mmol/l (137-146)
[2022-07-10 18:39] LABS: CARBON DIOXIDE 17 mmol/l (22-30)
[2022-07-10 21:03] LABS: ANION GAP 13 (6-22 (CALC)); BUN 18 mg/dL (9-20); BUN/CREATININE RATIO 23 (12-20 (CALC)); CARBON DIOXIDE 17 mmol/l (22-30); CHLORIDE 116 mmol/l (95-108); CREATININE 0.8 mg/dL (0.7-1.3); GFR FOR AFR.AMER. > 60 ML/MIN (>=60 (CALC)); GFR OTHER RACES > 60 ML/MIN (>=60 (CALC)); POTASSIUM 3.7 mmol/l (3.5-5.1); SODIUM 142 mmol/l (137-146)
[2022-07-11] VITALS (41 sets, daily range): BP systolic 81–146; BP diastolic 41–78
[2022-07-11 05:30] LABS: HEMATOCRIT 33.1 % (39.0-50.0); IMMATURE GRANULOCYTES 0.1 % (0.0-5.0); MEAN CELL VOLUME 87.1 fL CALC (80.0-100.0); MEAN CORPUSCULAR HGB 28.9 pG CALC (26.0-32.0); MEAN CORPUSCULAR HGB CONC 33.2 g/dL CAL (32.0-36.0); NEUT# 5.55 thou/uL (1.82-7.42); RED BLOOD COUNT 3.8 mill/uL (4.70-6.10); RED CELL DISTRI WIDTH 14.5 % (11.5-15.5)
[2022-07-11 05:48] LABS: ANION GAP 11 (6-22 (CALC)); BUN 16 mg/dL (9-20); BUN/CREATININE RATIO 20 (12-20 (CALC)); CARBON DIOXIDE 20 mmol/l (22-30); CHLORIDE 114 mmol/l (95-108); CREATININE 0.8 mg/dL (0.7-1.3); GFR FOR AFR.AMER. > 60 ML/MIN (>=60 (CALC)); GFR OTHER RACES > 60 ML/MIN (>=60 (CALC)); POTASSIUM 3.6 mmol/l (3.5-5.1); SODIUM 141 mmol/l (137-146)
[2022-07-11] MEDS ORDERED: CIPROFLOXACN500 MG PO (09:24)
[2022-07-11] MEDS ORDERED: METRONIDAZOLE500 MG PO (09:25)
== END 2022-07-11 11:20 | disposition home or self-care (01) | DRG 999 ==
LOC: ED 15:36 → MS2 20:51 → ED-I 20:52 → ED 20:52 → ICU 07-10 15:45
PROVIDERS: Emergency Medicine; ADMIT Internal Medicine; ATTEND Internal Medicine
DX: K52.9 Noninfective gastroenteritis and colitis, unspecified (principal); E11.10 Type 2 diabetes mellitus with ketoacidosis without coma; I10 Essential (primary) hypertension; E11.42 Type 2 diabetes mellitus with diabetic polyneuropathy; N40.0 Benign prostatic hyperplasia without lower urinary tract symptoms; Z72.89 Other problems related to lifestyle; Z79.4 Long term (current) use of insulin; Z79.84 Long term (current) use of oral hypoglycemic drugs; Z87.891 Personal history of nicotine dependence; Z20.822 Contact with and (suspected) exposure to COVID-19
CPT/HCPCS: J1650; Q9967; S0164

== ENCOUNTER 2022-11-14 17:38 | Emergency (ER) | payer OTHER ==
[~2022-11-14] VITALS: Ht 165.1 cm; Wt 75.0 kg
[~2022-11-14 17:38] MED LIST changes: +ACTOS15 MG PO; +PROTONIX20 M1 PO; +SILDENAFIL100 MG PO
[2022-11-14] MEDS ORDERED: NOVOLIN N100 UNIT/3 (19:30)
[2022-11-14 19:50] LABS: BASO% 0.3 % (0-3); EOS% 1.8 % (0-8); HEMATOCRIT 36.2 % (39.0-50.0); HEMOGLOBIN 12.1 g/dl (14.0-18.0); IMMATURE GRANULOCYTES 0.1 % (0.0-5.0); LYMPH% 26.4 % (15-41); MEAN CELL VOLUME 86.8 fL CALC (80.0-100.0); MEAN CORPUSCULAR HGB CONC 33.4 g/dL CAL (32.0-36.0); MONO% 8.2 % (2-13); NEUT# 5.8 thou/uL (1.82-7.42); NEUT% 63.2 % (42-76); RED BLOOD COUNT 4.17 mill/uL (4.70-6.10)
[2022-11-14 19:56] LABS: ALBUMIN 4.1 g/dL (3.2-5.0); CREATININE 1.5 mg/dL (0.7-1.3); TOTAL PROTEIN 6.9 g/dL (6.3-8.2)
[2022-11-14 20:12] LABS: BILIRUBIN, TOTAL 0.3 mg/dL (0.2-1.3)
[2022-11-14] MEDS ORDERED: LEVEMIR100 UNIT SC (20:28)
[2022-11-15 00:10] VITALS: BP 101/69
== END 2022-11-14 23:55 | disposition home or self-care (01) | DRG 639 ==
LOC: ED 17:38
PROVIDERS: Family Medicine
DX: E11.65 Type 2 diabetes mellitus with hyperglycemia (principal); Z79.4 Long term (current) use of insulin; I10 Essential (primary) hypertension; E11.40 Type 2 diabetes mellitus with diabetic neuropathy, unspecified

== ENCOUNTER 2023-02-28 10:59 | Emergency (ER) | payer MEDICARE ==
[~2023-02-28] VITALS: Ht 165.1 cm; Wt 69.0 kg
[2023-02-28] VITALS (8 sets, daily range): BP systolic 102–114; BP diastolic 62–68
[~2023-02-28 10:59] MED LIST changes: +NOVOLIN N100 UNIT/3
[2023-02-28 11:48] LABS: URINE BILIRUBIN - DIPSTICK NEGATIVE (NEGATIVE); URINE BLOOD DIPSTICK NEGATIVE (NEGATIVE); URINE COLOR YELLOW; URINE GLUCOSE - DIPSTICK >=1000 mg/dL (NEGATIVE); URINE KETONE NEGATIVE (NEGATIVE); URINE LEUK ESTERASE NEGATIVE (NEGATIVE); URINE NITRITE - DIPSTICK NEGATIVE (Negative); URINE PH 5.5 (4.5-8.0); URINE PROTEIN - DIPSTICK NEGATIVE (NEG-TRACE); URINE SPECIFIC GRAVITY 1.025; URINE UROBILINOGEN - DIPSTICK 0.2 E.U./dL (0.2)
[2023-02-28 11:49] LABS: BASO% 0.5 % (0-3); EOS% 2.2 % (0-8); IMMATURE GRANULOCYTES 0.1 % (0.0-5.0); LYMPH% 27.6 % (15-41); MEAN CELL VOLUME 86.6 fL CALC (80.0-100.0); MEAN CORPUSCULAR HGB 28.9 pG CALC (26.0-32.0); MEAN CORPUSCULAR HGB CONC 33.4 g/dL CAL (32.0-36.0); MONO% 9.4 % (2-13); NEUT# 4.93 thou/uL (1.82-7.42); NEUT% 60.2 % (42-76); RED BLOOD COUNT 5.15 mill/uL (4.70-6.10)
[2023-02-28 11:54] LABS: HEMATOCRIT 44.6 % (39.0-50.0); HEMOGLOBIN 14.9 g/dl (14.0-18.0)
[2023-02-28 12:00] LABS: ALBUMIN 4.8 g/dL (3.2-5.0); ALKALINE PHOSPHATASE 73 u/l (38-126); ANION GAP 18 (6-22 (CALC)); BILIRUBIN, TOTAL 0.5 mg/dL (0.2-1.3); BUN 33 mg/dL (9-20); BUN/CREATININE RATIO 28 (12-20 (CALC)); CARBON DIOXIDE 23 mmol/l (22-30); CHLORIDE 97 mmol/l (95-108); CREATININE 1.2 mg/dL (0.7-1.3); GFR FOR AFR.AMER. > 60 ML/MIN (>=60 (CALC)); GFR OTHER RACES > 60 ML/MIN (>=60 (CALC)); POTASSIUM 4.8 mmol/l (3.5-5.1); SGOT/AST 25 u/l (17-59); SODIUM 134 mmol/l (137-146); TOTAL PROTEIN 7.6 g/dL (6.3-8.2)
[2023-02-28] MEDS ORDERED: REGLAN10 MG PO (13:10)
[2023-02-28] MEDS ORDERED: PROTONIX40 M2 PO (13:10)
== END 2023-02-28 13:34 | disposition home or self-care (01) ==
LOC: ED 10:59
PROVIDERS: Family Medicine
DX: E11.65 Type 2 diabetes mellitus with hyperglycemia (principal); E11.40 Type 2 diabetes mellitus with diabetic neuropathy, unspecified; I10 Essential (primary) hypertension; Z79.4 Long term (current) use of insulin; Z79.84 Long term (current) use of oral hypoglycemic drugs; Z20.822 Contact with and (suspected) exposure to COVID-19
CPT/HCPCS: S0164

== ENCOUNTER 2023-05-09 12:22 | Observation (INO) | payer MEDICARE ==
[~2023-05-09] VITALS: Ht 165.1 cm; Wt 72.4 kg
[2023-05-09] VITALS (22 sets, daily range): BP systolic 74–156; BP diastolic 48–100
[~2023-05-09 12:22] MED LIST changes: +PROTONIX40 M2 PO; +REGLAN10 MG PO
--- NOTE | 2023-05-09 12:23 | NUR ---
PT TO ROOM 9 VIA W/C, CALL LIGHT IN REACH, PROVIDER NOTIFIED.
[2023-05-09 12:50] LABS: BASO% 0.8 % (0-3); EOS% 3.7 % (0-8); HEMATOCRIT 42.8 % (39.0-50.0); IMMATURE GRANULOCYTES 0.1 % (0.0-5.0); LYMPH% 31.4 % (15-41); MEAN CELL VOLUME 85.1 fL CALC (80.0-100.0); MEAN CORPUSCULAR HGB 27.8 pG CALC (26.0-32.0); MEAN CORPUSCULAR HGB CONC 32.7 g/dL CAL (32.0-36.0); MONO% 7.4 % (2-13); NEUT# 4.3 thou/uL (1.82-7.42); NEUT% 56.6 % (42-76); RED BLOOD COUNT 5.03 mill/uL (4.70-6.10); RED CELL DISTRI WIDTH 12.9 % (11.5-15.5)
[2023-05-09 13:11] LABS: ALKALINE PHOSPHATASE 83 u/l (38-126); ANION GAP 14 (6-22 (CALC)); BILIRUBIN, TOTAL 0.4 mg/dL (0.2-1.3); BUN 23 mg/dL (9-20); BUN/CREATININE RATIO 22 (12-20 (CALC)); CARBON DIOXIDE 21 mmol/l (22-30); CHLORIDE 102 mmol/l (95-108); GFR FOR AFR.AMER. > 60 ML/MIN (>=60 (CALC)); GFR OTHER RACES > 60 ML/MIN (>=60 (CALC)); POTASSIUM 4.4 mmol/l (3.5-5.1); SGOT/AST 21 u/l (17-59); SODIUM 133 mmol/l (137-146); TOTAL PROTEIN 6.9 g/dL (6.3-8.2)
--- NOTE | 2023-05-09 13:30 | NUR ---
Reassessment of patient completed. No distress noted. NO COMPLAINTS, CALL LIGHT IN REACH.
[2023-05-09 13:33] LABS: URINE BILIRUBIN - DIPSTICK NEGATIVE (NEGATIVE); URINE BLOOD DIPSTICK NEGATIVE (NEGATIVE); URINE COLOR YELLOW; URINE GLUCOSE - DIPSTICK >=1000 mg/dL (NEGATIVE); URINE KETONE TRACE mg/dL (NEGATIVE); URINE NITRITE - DIPSTICK NEGATIVE (Negative); URINE PROTEIN - DIPSTICK NEGATIVE (NEG-TRACE); URINE UROBILINOGEN - DIPSTICK 0.2 E.U./dL (0.2)
[2023-05-09 13:34] LABS: URINE LEUK ESTERASE NEGATIVE (NEGATIVE)
--- NOTE | 2023-05-09 14:30 | NUR ---
Reassessment of patient completed. No distress noted.
--- NOTE | 2023-05-09 15:42 | NUR ---
Reassessment of patient completed. No distress noted. VSS, STATING FEELS BETTER, ORTHOSTATIC VS DONE, CALL LIGHT IN REACH, 3RD LITER FLUIDS STARTED PER ORDERS.
--- NOTE | 2023-05-09 18:54 | NUR ---
REPORT CALLED TO [facility] BY FLACO BARRIENTOS, VSS, TAKEN TO [facility] VIA W/C, ALL BELONGINGS SENT WITH PT.
--- NOTE | 2023-05-09 20:00 | NUR ---
PATIENT BROUGHT TO THE FLOOR VIA WHEELCHAIR WITH ER STAFF IN ATTENDANCE AT 1855. PATIENT IS AMBULATORY, ALERT AND ORIENTEDX3. 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 PATIENT STATES THT HE WORKS IN [employer]. PATIENT IS ALSO KNOWN DIAB AND TAKES INSULIN. PATIENT DID HAVE SOME SNACK UPON ARRIVAL TO THE UNIT. APPETITE IS GOOD. PATIENT WITH IV SITE TO RAC-SITE IS HEALTHY WITH GOOD BLOOD RETURN.PATIENT WAS UP TO SHOWER-PROVIDED WITH TOILETRIES AND TOWELS. IVF NS HUMG AND INFUSING AT 100CC/HR. LUNGS ARE CLEAR. ABD IS SOFT WITH ACTIVE BS. STATES THAT HIS LAST BM WAS YESTERDAY. DENIES ANY DIFFICULTY WITH URINATION. NO PERIPERAL EDEMA NOTED. PULSES ARE PALPABLE. ORIENTED TO ROOM AND SURROUNDINGS. INSTRUCTED ON USE OF NURSE CALL LIGHT SYSTEM AND TV REMOTE.SAFETY PRECAUTIONS REINFORCED. CALL LIGHT IN REACH. WILL CONT TO MONITOR.
--- NOTE | 2023-05-09 21:30 | NUR ---
PATIENT PROVIDED WITH HEALTHY CHOICE TURKEY DINNER-GLUCOSE BEFORE WAS 127-NO COVERAGE WAS PROVIDED. MEDICATED WITH LEVEMIR ORDERED. IVF NS PATENT AND INFUSING AT 100CC/HR VIA RAC SITE. CALL LIGHT IN REACH, WILL CONT TO MONITOR.
--- NOTE | 2023-05-10 01:00 | NUR ---
PATIENT RESTING IN BED WITH EYES CLOSED. RESPS ARE EVEN AND UNLABORED. IVF PATENT AND INFUSING VIA RAC SITE AT 100CC/HR. CALL LIGHT IN REACH. WILL CONT TO MONITOR.
[2023-05-10 04:52] VITALS: BP 104/62
[2023-05-10 05:53] LABS: HEMATOCRIT 39.3 % (39.0-50.0); HEMOGLOBIN 12.4 g/dl (14.0-18.0); MEAN CELL VOLUME 86.9 fL CALC (80.0-100.0); MEAN CORPUSCULAR HGB 27.4 pG CALC (26.0-32.0); MEAN CORPUSCULAR HGB CONC 31.6 g/dL CAL (32.0-36.0); RED BLOOD COUNT 4.52 mill/uL (4.70-6.10); RED CELL DISTRI WIDTH 13.2 % (11.5-15.5)
[2023-05-10 06:24] LABS: ALKALINE PHOSPHATASE 49 u/l (38-126); ANION GAP 8 (6-22 (CALC)); BILIRUBIN, TOTAL 0.4 mg/dL (0.2-1.3); BUN 15 mg/dL (9-20); BUN/CREATININE RATIO 18 (12-20 (CALC)); CALCULATED LDLCHOLESTEROL 31 mg/dL (62-129 (CALC)); CARBON DIOXIDE 22 mmol/l (22-30); CHLORIDE 111 mmol/l (95-108); CREATININE 0.9 mg/dL (0.7-1.3); GFR FOR AFR.AMER. > 60 ML/MIN (>=60 (CALC)); GFR OTHER RACES > 60 ML/MIN (>=60 (CALC)); HDL CHOLESTEROL 24 mg/dL (39.0-59.0); MAGNESIUM 1.6 mg/dL (1.6-2.3); POTASSIUM 4.2 mmol/l (3.5-5.1); SGOT/AST 16 u/l (17-59); SODIUM 136 mmol/l (137-146); TOTAL CHOLESTEROL 71 mg/dl (0-199); TOTAL TRIGLYCERIDES 83 mg/dl (0-149); VLDL CHOLESTROL 17 mg/dl (8-62 (CALC))
--- NOTE | 2023-05-10 06:25 | NUR ---
PATIENT AWAKE ALERT AND ORIENTED THIS MORNING SITTING UP IN BED WATCHING THE NEWS. STATES THAT HE IS FEELING MUCH BETTER THIS MORNING. IVF PATENT AND INFUSING VIA RAC SITE AT 100CC/HR. PROVIDED WITH COFFEE PER PATIENT REQUEST. CALL LIGHT IN REACH. WILL CONT TO MONITOR.
[2023-05-10 06:30] VITALS: BP 107/69
[2023-05-10 06:35] LABS: TOTAL PROTEIN 5.5 g/dL (6.3-8.2)
[2023-05-10 06:52] VITALS: BP 107/69
--- NOTE | 2023-05-10 08:00 | NUR ---
PT SITTING UP IN BED, ALERT AND ORIENTED X3. PT HAS NO C/O PAIN AT THIS TIME. PT HAS IV SITE TO RAC WITH NS @ 100 ML/HR. PT AMBULATES TO BATHROOM FOR TOILETING NEEDS. PT HAS CALL LIGHT WITHIN REACH AND ALL SAFETY MEASURES IN PLACE AT THIS TIME.
--- NOTE | 2023-05-10 12:30 | NUR ---
PT UP IN BED, ALERT AND ORIENTED X3. PT HAS NO C/O PAIN AT THIS TIME. PT HAS NO CHANGE IN STATUS AT THIS TIME. PT HAS CALL LIGHT [place] REACH.
--- NOTE | 2023-05-10 13:48 | NUR ---
Discharge instructions given. Patient verbalizes understanding of same. Discharged in stable condition via Wheelchair to Home with volunteer. All belongings sent with pt.
== END 2023-05-10 13:47 | disposition home or self-care (01) ==
LOC: ED 12:22 → ED-I 16:00 → ED 16:54 → MS2 16:55
PROVIDERS: Family Medicine; ADMIT Internal Medicine; ATTEND Internal Medicine
DX: R42 Dizziness and giddiness (principal); R53.1 Weakness; E11.65 Type 2 diabetes mellitus with hyperglycemia; I95.1 Orthostatic hypotension; E86.0 Dehydration; I10 Essential (primary) hypertension; E11.42 Type 2 diabetes mellitus with diabetic polyneuropathy; Z79.84 Long term (current) use of oral hypoglycemic drugs; Z79.4 Long term (current) use of insulin; Z87.891 Personal history of nicotine dependence
CPT/HCPCS: J1650; Q9967

== ENCOUNTER 2023-10-18 09:49 | Emergency (ER) | payer MEDICARE ==
[~2023-10-18] VITALS: Ht 165.1 cm; Wt 77.1 kg
[2023-10-18 10:42] LABS: BASO% 0.8 % (0-3); EOS% 2.7 % (0-8); IMMATURE GRANULOCYTES 0.1 % (0.0-5.0); MEAN CELL VOLUME 87.5 fL CALC (80.0-100.0); MEAN CORPUSCULAR HGB 29.1 pG CALC (26.0-32.0); MEAN CORPUSCULAR HGB CONC 33.3 g/dL CAL (32.0-36.0); MONO% 7.1 % (2-13); NEUT# 4.75 thou/uL (1.82-7.42); NEUT% 61.3 % (42-76); RED BLOOD COUNT 5.43 mill/uL (4.70-6.10); RED CELL DISTRI WIDTH 13.8 % (11.5-15.5)
[2023-10-18 10:43] LABS: URINE BILIRUBIN - DIPSTICK Negative (NEGATIVE); URINE BLOOD DIPSTICK Negative (NEGATIVE); URINE GLUCOSE - DIPSTICK >=1000 mg/dL (NEGATIVE); URINE KETONE 40 mg/dL (NEGATIVE); URINE LEUK ESTERASE Negative (NEGATIVE); URINE NITRITE - DIPSTICK Negative (Negative); URINE PH 5.5 (4.5-8.0); URINE PROTEIN - DIPSTICK Negative (NEG-TRACE); URINE UROBILINOGEN - DIPSTICK 0.2 E.U./dL (0.2)
[2023-10-18 10:43] LABS: HEMATOCRIT 47.5 % (39.0-50.0); HEMOGLOBIN 15.8 g/dl (14.0-18.0)
[2023-10-18 10:45] LABS: URINE COLOR Yellow
[2023-10-18 10:57] LABS: BUN 20 mg/dL (9-20); BUN/CREATININE RATIO 22 (12-20 (CALC)); CARBON DIOXIDE 21 mmol/l (22-30); CREATININE 0.9 mg/dL (0.7-1.3); GFR FOR AFR.AMER. > 60 ML/MIN (>=60 (CALC)); GFR OTHER RACES > 60 ML/MIN (>=60 (CALC)); POTASSIUM 4.2 mmol/l (3.5-5.1); SODIUM 132 mmol/l (137-146)
[2023-10-18 11:06] LABS: ALBUMIN 4.9 g/dL (3.2-5.0); ALKALINE PHOSPHATASE 147 u/l (38-126); ANION GAP 20 (6-22 (CALC)); BILIRUBIN, TOTAL 0.6 mg/dL (0.2-1.3); CHLORIDE 95 mmol/l (95-108); SGOT/AST 30 u/l (17-59); TOTAL PROTEIN 8.1 g/dL (6.3-8.2)
[2023-10-18 12:51] VITALS: BP 135/79
== END 2023-10-18 13:00 | disposition home or self-care (01) ==
LOC: ED 09:49
PROVIDERS: Family Medicine
DX: E11.65 Type 2 diabetes mellitus with hyperglycemia (principal); I10 Essential (primary) hypertension; F17.210 Nicotine dependence, cigarettes, uncomplicated; Z79.84 Long term (current) use of oral hypoglycemic drugs; Z79.4 Long term (current) use of insulin; Z20.822 Contact with and (suspected) exposure to COVID-19

== ENCOUNTER 2023-12-02 09:03 | Emergency (ER) | payer MEDICARE ==
[~2023-12-02] VITALS: Ht 165.1 cm; Wt 77.0 kg
[~2023-12-02 09:03] MED LIST changes: +ACTOS30 MG PO; +ASPIRIN 81 LOW81 MG PO; +MECLIZINE25 MG PO
[2023-12-02] MEDS ORDERED: ONDANSETRON HCl 4 MG/2 ML SDV IV ONE (09:10)
[2023-12-02] MEDS ORDERED: SODIUM CHLORIDE 0.9% 1,000 ML IV ONE (09:10)
[2023-12-02 09:13] VITALS: BP 153/95
[2023-12-02] MEDS ORDERED: ALUM & MAG HYDROX-SIMETHICONE 30 ML PO ONE (09:30)
[2023-12-02] MEDS ORDERED: Pantoprazole Sodium 40 MG VIAL (Protonix) IV ONE (09:30)
[2023-12-02] MEDS ORDERED: LIDOCAINE VISCOUS 2% 15 ML UDC PO ONE (09:30)
[2023-12-02 09:45] LABS: BASO% 0.3 % (0-3); EOS% 1.2 % (0-8); HEMATOCRIT 40.8 % (39.0-50.0); HEMOGLOBIN 13.6 g/dl (14.0-18.0); IMMATURE GRANULOCYTES 0.3 % (0.0-5.0); LYMPH% 13.8 % (15-41); MEAN CELL VOLUME 87.9 fL CALC (80.0-100.0); MEAN CORPUSCULAR HGB 29.3 pG CALC (26.0-32.0); MEAN CORPUSCULAR HGB CONC 33.3 g/dL CAL (32.0-36.0); NEUT# 11.83 thou/uL (1.82-7.42); NEUT% 80.4 % (42-76); RED BLOOD COUNT 4.64 mill/uL (4.70-6.10)
[2023-12-02 09:51] LABS: ANION GAP 18 (6-22 (CALC)); BUN 16 mg/dL (9-20); BUN/CREATININE RATIO 23 (12-20 (CALC)); CARBON DIOXIDE 20 mmol/l (22-30); CHLORIDE 103 mmol/l (95-108); CREATININE 0.7 mg/dL (0.7-1.3); GFR FOR AFR.AMER. > 60 ML/MIN (>=60 (CALC)); GFR OTHER RACES > 60 ML/MIN (>=60 (CALC)); LIPASE 91 u/l (23-300); POTASSIUM 4.6 mmol/l (3.5-5.1); SGOT/AST 26 u/l (17-59); SODIUM 137 mmol/l (137-146)
[2023-12-02 09:57] LABS: ALBUMIN 4.5 g/dL (3.2-5.0); ALKALINE PHOSPHATASE 102 u/l (38-126); BILIRUBIN, TOTAL 0.8 mg/dL (0.2-1.3); TOTAL PROTEIN 7.2 g/dL (6.3-8.2)
[2023-12-02] MEDS ORDERED: ZOFRAN4 MG/TAB PO (14:15)
[2023-12-02 15:03] VITALS: BP 153/95
== END 2023-12-02 15:22 | disposition home or self-care (01) ==
LOC: ED 09:03
PROVIDERS: Family Medicine
DX: R10.13 Epigastric pain (principal); I10 Essential (primary) hypertension; E11.9 Type 2 diabetes mellitus without complications; Z79.84 Long term (current) use of oral hypoglycemic drugs; Z79.4 Long term (current) use of insulin; Z72.0 Tobacco use; Z20.822 Contact with and (suspected) exposure to COVID-19
CPT/HCPCS: Q9967; S0164

== ENCOUNTER 2024-04-28 09:29 | Emergency (ER) | payer MEDICARE ==
[2024-04-28] VITALS (10 sets, daily range): BP systolic 112–149; BP diastolic 66–78
[~2024-04-28] VITALS: Ht 165.1 cm; Wt 77.1 kg
[~2024-04-28 09:29] MED LIST changes: +ZOFRAN4 MG/TAB PO
[2024-04-28] MEDS ORDERED: SODIUM CHLORIDE 0.9% 1,000 ML IV ONE (09:45)
[2024-04-28 10:01] LABS: BASO% 0.6 % (0-3); EOS% 3.6 % (0-8); HEMATOCRIT 38.4 % (39.0-50.0); HEMOGLOBIN 12.8 g/dl (14.0-18.0); IMMATURE GRANULOCYTES 0.3 % (0.0-5.0); LYMPH% 25.8 % (15-41); MEAN CELL VOLUME 88.3 fL CALC (80.0-100.0); MEAN CORPUSCULAR HGB 29.4 pG CALC (26.0-32.0); MEAN CORPUSCULAR HGB CONC 33.3 g/dL CAL (32.0-36.0); MONO% 7.6 % (2-13); NEUT# 3.92 thou/uL (1.82-7.42); NEUT% 62.1 % (42-76); RED BLOOD COUNT 4.35 mill/uL (4.70-6.10); RED CELL DISTRI WIDTH 14.1 % (11.5-15.5)
[2024-04-28 10:15] LABS: ALBUMIN 3.4 g/dL (3.2-5.0); CREATININE 0.9 mg/dL (0.7-1.3); TOTAL PROTEIN 6.3 g/dL (6.3-8.2)
[2024-04-28 10:16] LABS: BILIRUBIN, TOTAL 0.7 mg/dL (0.2-1.3); POTASSIUM 4.4 mmol/l (3.5-5.1)
[2024-04-28 11:30] LABS: URINE BILIRUBIN - DIPSTICK Negative (NEGATIVE); URINE BLOOD DIPSTICK Negative (NEGATIVE); URINE GLUCOSE - DIPSTICK 500 mg/dL (NEGATIVE); URINE KETONE 15 mg/dL (NEGATIVE); URINE LEUK ESTERASE Negative (NEGATIVE); URINE NITRITE - DIPSTICK Negative (Negative); URINE PH 5.5 (4.5-8.0); URINE PROTEIN - DIPSTICK Negative (NEG-TRACE); URINE SPECIFIC GRAVITY 1.015; URINE UROBILINOGEN - DIPSTICK 0.2 E.U./dL (0.2)
[2024-04-28 11:31] LABS: URINE COLOR Yellow
[2024-04-28] MEDS ORDERED: IMODIUM A-D2 M3 PO (11:38)
== END 2024-04-28 12:00 | disposition home or self-care (01) ==
LOC: ED 09:29
PROVIDERS: Family Medicine
DX: R11.2 Nausea with vomiting, unspecified (principal); R19.7 Diarrhea, unspecified; I10 Essential (primary) hypertension; E11.40 Type 2 diabetes mellitus with diabetic neuropathy, unspecified; E78.5 Hyperlipidemia, unspecified; K21.9 Gastro-esophageal reflux disease without esophagitis; Z79.4 Long term (current) use of insulin; Z20.822 Contact with and (suspected) exposure to COVID-19

== ENCOUNTER 2024-06-12 07:28 | Emergency (ER) | payer OTHER, MEDICARE ==
[~2024-06-12] VITALS: Ht 165.1 cm; Wt 77.1 kg
[~2024-06-12 07:28] MED LIST changes: +IMODIUM A-D2 M3 PO
[2024-06-12] MEDS ORDERED: MORPHINE SULFATE 4 MG/ML VIAL IV ONE (07:35)
[2024-06-12] MEDS ORDERED: ONDANSETRON HCl 4 MG/2 ML SDV IV ONE (07:35)
[2024-06-12] MEDS ORDERED: ceFAZolin Sodium 1 GM in SODIUM CHLORIDE 0.9% 50 ML IV ONE (07:35)
[2024-06-12] MEDS ORDERED: Diph, Acellular Pertussis, Tet 0.5 ML/VIAL (Tdap) SDV IM ONE (07:35)
[2024-06-12 07:50] LABS: BASO% 0.4 % (0-3); EOS% 3.2 % (0-8); HEMATOCRIT 37.1 % (39.0-50.0); HEMOGLOBIN 12.3 g/dl (14.0-18.0); IMMATURE GRANULOCYTES 0.3 % (0.0-5.0); LYMPH% 16.8 % (15-41); MEAN CELL VOLUME 88.5 fL CALC (80.0-100.0); MEAN CORPUSCULAR HGB 29.4 pG CALC (26.0-32.0); MEAN CORPUSCULAR HGB CONC 33.2 g/dL CAL (32.0-36.0); MONO% 5.9 % (2-13); NEUT# 7.18 thou/uL (1.82-7.42); NEUT% 73.4 % (42-76); RED BLOOD COUNT 4.19 mill/uL (4.70-6.10); RED CELL DISTRI WIDTH 13.7 % (11.5-15.5)
[2024-06-12 08:04] LABS: ALBUMIN 3.8 g/dL (3.2-5.0); BILIRUBIN, TOTAL 0.5 mg/dL (0.2-1.3); CREATININE 0.9 mg/dL (0.7-1.3); POTASSIUM 4.2 mmol/l (3.5-5.1); TOTAL PROTEIN 6.6 g/dL (6.3-8.2)
[2024-06-12 09:28] LABS: LIPASE 93 u/l (23-300)
[2024-06-12] MEDS ORDERED: CEPHALEXIN500 M1 PO (10:02)
[2024-06-12 10:04] LABS: URINE BLOOD DIPSTICK Moderate (NEGATIVE); URINE CLARITY Clear; URINE GLUCOSE - DIPSTICK >=1000 mg/dL (NEGATIVE); URINE KETONE Trace mg/dL (NEGATIVE); URINE LEUK ESTERASE Negative (Negative); URINE NITRITE - DIPSTICK Negative (Negative); URINE PROTEIN - DIPSTICK 100 mg/dL (NEG-TRACE); URINE SPECIFIC GRAVITY >=1.030; URINE UROBILINOGEN - DIPSTICK 0.2 E.U./dL (0.2)
[2024-06-12 10:05] LABS: URINE COLOR Yellow
[2024-06-12 10:06] LABS: URINE BACTERIA FEW hpf; URINE WBC 0-2 WBC/hpf (0-5)
[2024-06-12 10:08] LABS: URINE COARSE GRANULAR CAST FEW lpf; URINE RENAL EPITHELIAL CELLS FEW hpf
[2024-06-12 10:09] LABS: URINE CASTS FEW lpf (NONE-RARE); URINE RBC 50-100 RBC/hpf (0-5)
[2024-06-12 10:33] VITALS: BP 143/77
[2024-06-13] MEDS ORDERED: KEFLEX500 MG PO (20:31)
[2024-06-13] MEDS ORDERED: VOLTAREN - GENE75 MG PO (20:31)
[2024-06-13] MEDS ORDERED: TRAMADOL HCL50 MG PO (20:31)
== END 2024-06-12 10:37 | disposition home or self-care (01) | DRG 605 ==
LOC: ED 07:28
PROVIDERS: Family Medicine
PROC: 0HQ0XZZ Repair Scalp Skin, External Approach (ICD-10-PCS; principal; 2024-06-12)
DX: S01.01XA Laceration without foreign body of scalp, initial encounter (principal); I10 Essential (primary) hypertension; E11.40 Type 2 diabetes mellitus with diabetic neuropathy, unspecified; E78.5 Hyperlipidemia, unspecified; K21.9 Gastro-esophageal reflux disease without esophagitis; V43.52XA Car driver injured in collision with other type car in traffic accident, initial encounter; Z79.4 Long term (current) use of insulin
CPT/HCPCS: Q9967

== ENCOUNTER 2024-06-13 17:22 | Emergency (ER) | payer OTHER, MEDICARE ==
[2024-06-13] VITALS (8 sets, daily range): BP systolic 128–154; BP diastolic 69–76
[~2024-06-13] VITALS: Ht 165.1 cm; Wt 77.0 kg
[~2024-06-13 17:22] MED LIST changes: +CEPHALEXIN500 M1 PO
[2024-06-13 17:52] LABS: BASO% 0.5 % (0-3); HEMATOCRIT 32.6 % (39.0-50.0); HEMOGLOBIN 10.8 g/dl (14.0-18.0); IMMATURE GRANULOCYTES 0.3 % (0.0-5.0); LYMPH% 14.5 % (15-41); MEAN CELL VOLUME 89.1 fL CALC (80.0-100.0); MEAN CORPUSCULAR HGB 29.5 pG CALC (26.0-32.0); MEAN CORPUSCULAR HGB CONC 33.1 g/dL CAL (32.0-36.0); MONO% 8.9 % (2-13); NEUT# 7.45 thou/uL (1.82-7.42); NEUT% 74.8 % (42-76); RED BLOOD COUNT 3.66 mill/uL (4.70-6.10); RED CELL DISTRI WIDTH 13.7 % (11.5-15.5)
[2024-06-13] MEDS ORDERED: METHOCARBAMOL 1,000 MG/10 ML VIAL IV ONE (18:00)
[2024-06-13] MEDS ORDERED: KETOROLAC TROMETHAMINE 30 MG/ML SDV IV ONE (18:00)
[2024-06-13] MEDS ORDERED: SODIUM CHLORIDE 0.9% 1,000 ML IV ONE (18:00)
[2024-06-13 18:03] LABS: ALBUMIN 3.8 g/dL (3.2-5.0); ALKALINE PHOSPHATASE 58 u/l (38-126); ANION GAP 7 (6-22 (CALC)); BILIRUBIN, TOTAL 0.6 mg/dL (0.2-1.3); BUN 19 mg/dL (9-20); BUN/CREATININE RATIO 23 (12-20 (CALC)); CARBON DIOXIDE 24 mmol/l (22-30); CHLORIDE 107 mmol/l (95-108); CREATININE 0.9 mg/dL (0.7-1.3); ESTIMATED GFR 100 ML/MIN (>=90 (CALC)); POTASSIUM 3.9 mmol/l (3.5-5.1); SGOT/AST 38 u/l (17-59); SODIUM 135 mmol/l (137-146); TOTAL PROTEIN 6.7 g/dL (6.3-8.2)
[2024-06-13] MEDS ORDERED: VOLTAREN - GENE75 MG PO (20:31)
[2024-06-13] MEDS ORDERED: KEFLEX500 MG PO (20:31)
[2024-06-13] MEDS ORDERED: TRAMADOL HCL50 MG PO (20:31)
== END 2024-06-13 20:50 | disposition home or self-care (01) | DRG 206 ==
LOC: ED 17:22
PROVIDERS: Nurse Practitioner
DX: S22.32XA Fracture of one rib, left side, initial encounter for closed fracture (principal); S30.1XXA Contusion of abdominal wall, initial encounter; S01.01XA Laceration without foreign body of scalp, initial encounter; I10 Essential (primary) hypertension; E11.40 Type 2 diabetes mellitus with diabetic neuropathy, unspecified; E78.5 Hyperlipidemia, unspecified; K21.9 Gastro-esophageal reflux disease without esophagitis; V49.40XA Driver injured in collision with unspecified motor vehicles in traffic accident, initial encounter; Z79.4 Long term (current) use of insulin
CPT/HCPCS: Q9967